=== PATIENT | female | born 1955 | race Two or more races ===

== ENCOUNTER → 2017-04-11 | Outpatient (CLI) | payer OTHER | END | disposition home or self-care (01) | LOC: HKI 14:23 | DX: M87.852 Other osteonecrosis, left femur (principal); M87.851 Other osteonecrosis, right femur | CPT/HCPCS: Z7500 ==

== ENCOUNTER → 2017-07-23 | Outpatient (CLI) | payer OTHER | END | disposition home or self-care (01) | LOC: HKI 13:26 | DX: Z01.818 Encounter for other preprocedural examination (principal) | CPT/HCPCS: Z7500 ==

== ENCOUNTER 2017-07-24 05:44 | Inpatient (IN) | payer OTHER ==
[2017-07-24] MEDS: CEFAZOLIN 2 GM/50 ML (PMX) 50 ML IVPB (07:00)
[2017-07-24] MEDS: TRANEXAMIC ACID 1,000 MG in NS 100 ML PRE-OP X1 IVPB (07:00)
[2017-07-24] MEDS: TRANEXAMIC ACID 1,000 MG in NS 100 ML INTRA-OP X1 IVPB (07:00)
[2017-07-24] MEDS: ONDANSETRON 4 MG INJ IV ×4 (07:21→23:16)
[2017-07-24] MEDS: LANSOPRAZOLE 30 MG CAP PO (07:21)
[2017-07-24] MEDS: CELECOXIB 200 MG CAP PO (07:21)
[2017-07-24] MEDS: oxyCODONE (CR) 10 MG TAB [oxyCONTIN] PO (07:21)
[2017-07-24] MEDS: DEXAMETHASONE 4 MG/ML 1 ML INJ IV (07:21)
[2017-07-24] MEDS: LACTATED RINGER'S 1,000 ML IV* (07:23)
[2017-07-24] MEDS: ACETAMINOPHEN 1000MG/100ML IV 100 ML IVPB (07:33)
[2017-07-24] MEDS: BACITRACIN 50000 UNITS INJ (08:38)
[2017-07-24] MEDS: POLYMYXIN B 500000 UNIT INJ (08:39)
[2017-07-24] MEDS: POLYMYXIN/BACITRACIN 1L IRRIG (08:46)
[2017-07-24] MEDS: HIP PAIN COCKTAIL (CEFUROXIME) INJ (08:47)
[2017-07-24] MEDS ORDERED: morphine (1 MG/ML) 10ML SYRINGE IV ×2 (09:30)
[2017-07-24] MEDS ORDERED: HYDROmorphONE (0.2 MG/ML) 10ML SYG IV ×2 (09:30)
[2017-07-24] MEDS ORDERED: hydrALAzine 20 MG INJ IV (09:30)
[2017-07-24] MEDS ORDERED: METOCLOPRAMIDE 10 MG INJ IV (09:30)
[2017-07-24] MEDS ORDERED: FENTAnyl 50 MCG/ML VIAL IV ×2 (09:30)
[2017-07-24] MEDS ORDERED: ONDANSETRON 4 MG INJ IV (09:30)
[2017-07-24] MEDS ORDERED: MEPERIDINE 25 MG INJ IV (09:30)
[2017-07-24] MEDS ORDERED: DIPHENHYDRAMINE 50 MG INJ IV ×2 (09:30→10:30)
[2017-07-24] MEDS ORDERED: NACL 0.9% 3 ML SYG IV (10:30)
[2017-07-24] MEDS ORDERED: MAGNESIUM HYDROXIDE 30ML CUP PO (10:30)
[2017-07-24] MEDS ORDERED: BISACODYL 10 MG SUPP PR (10:30)
[2017-07-24] MEDS ORDERED: NALOXONE (0.4 MG/ML) INJ IV (10:30)
[2017-07-24] MEDS ORDERED: SENNA/DOCUSATE NA (8.6MG/50MG) TAB PO (10:30)
[2017-07-24] MEDS ORDERED: NA PHOSPHATE/BIPHOS 133 ML ENEMA PR (10:30)
[2017-07-24] MEDS ORDERED: ZOLPIDEM 5 MG TAB PO (10:30)
[2017-07-24] MEDS ORDERED: CEFAZOLIN 1 GM/50 ML (PMX) 50 ML IVPB (10:42)
[2017-07-24] MEDS ORDERED: DOCUSATE SODIUM 100 MG CAP PO (10:42)
[2017-07-24] MEDS ORDERED: ASPIRIN (EC) 325 MG TAB PO (10:42)
[2017-07-24] MEDS: CEFAZOLIN 1 GM/50 ML (PMX) 50 ML IVPB ×2 (10:53→20:16)
[2017-07-24] MEDS: ASPIRIN (EC) 325 MG TAB PO ×2 (10:54→20:16)
[2017-07-24] MEDS: DOCUSATE SODIUM 100 MG CAP PO (10:54)
[2017-07-24] MEDS: SOD CHLORIDE 0.9% 1,000 ML IV ×2 (13:51→22:49)
[2017-07-24] MEDS: oxyCODONE 5 MG TAB PO ×3 (14:00→20:39)
[2017-07-24] MEDS: LACTULOSE 30ML CUP PO (17:57)
[2017-07-24] MEDS ORDERED: DEXTROSE 50% 50 ML SYRINGE IV ×2 (18:00)
[2017-07-24] MEDS ORDERED: GLUCOSE GEL 15 GRAM TUBE PO ×2 (18:00)
[2017-07-24] MEDS ORDERED: IVERMECTIN 3 MG TAB PO (18:00)
[2017-07-24] MEDS ORDERED: GLUCAGON 1 MG INJ IM (18:00)
[2017-07-24] MEDS ORDERED: GLUCOSE GEL 15 GRAM TUBE BUCCAL (18:00)
[2017-07-24] MEDS: INSULIN ASPART [NOVOLOG] 3 ML PEN SC ×2 (18:28→20:24)
[2017-07-24] MEDS: ATORVASTATIN 20 MG TAB PO (20:16)
[2017-07-24] MEDS: GABAPENTIN 100 MG CAP PO (20:16)
[2017-07-24] MEDS: traZODone 50 MG TAB PO (20:40)
[2017-07-25] MEDS: ACCU-CHEK XX (02:07)
[2017-07-25] MEDS: INSULIN ASPART [NOVOLOG] 3 ML PEN SC ×5 (03:06→21:15)
[2017-07-25] MEDS: CEFAZOLIN 1 GM/50 ML (PMX) 50 ML IVPB (03:08)
[2017-07-25 06:07] LABS: ADD MAN DIFF? NO
[2017-07-25] MEDS: ONDANSETRON 4 MG INJ IV (06:18)
[2017-07-25] MEDS: PANTOPRAZOLE (EC) 40 MG TAB PO (06:18)
[2017-07-25] MEDS: LACTULOSE 30ML CUP PO ×4 (06:18→18:37)
[2017-07-25 06:25] LABS: BASOPHILS % 0.1 % (0.0-2.0); HEMATOCRIT 27.7 % (37.0-47.0); HEMOGLOBIN 9.1 g/dl (12.0-16.0); LYMPHOCYTES # 1.2 10^3/ul (0.8-2.9); LYMPHOCYTES % 15.7 % (15.0-51.0); MEAN CORPUSCULAR HEMOGLOBIN 32.2 pg (29.0-33.0); MEAN CORPUSCULAR HGB CONC 32.9 g/dl (32.0-37.0); MEAN CORPUSCULAR VOLUME 97.9 fl (82.0-101.0); MEAN PLATELET VOLUME 11.7 fl (7.4-10.4); MONOCYTE # 0.7 10^3/ul (0.3-0.9); MONOCYTES % 9.3 % (0.0-11.0); NEUTROPHIL # 5.8 10^3/ul (1.6-7.5); NEUTROPHILS % 74.5 % (39.0-77.0); PLATELET COUNT 186 10^3/UL (140-415); RED BLOOD COUNT 2.83 10^6/ul (4.20-5.40); RED CELL DISTRIBUTION WIDTH 12.7 % (11.5-14.5)
[2017-07-25 06:25] LABS: WHITE BLOOD COUNT 7.8 10^3/ul (4.8-10.8)
[2017-07-25 06:43] LABS: ANION GAP 15 (8-16); BLOOD UREA NITROGEN 23 mg/dl (7-20); CALCIUM 8.3 mg/dl (8.4-10.2); CARBON DIOXIDE 27 mmol/L (21-31); CHLORIDE 103 mmol/L (97-110); CREATININE 0.99 mg/dl (0.44-1.00); GLUCOSE 236 mg/dl (70-220); POTASSIUM 4.5 mmol/L (3.5-5.1); SODIUM 140 mmol/L (135-144)
[2017-07-25 06:48] LABS: ALANINE AMINOTRANSFERASE 21 IU/L (13-69); ALBUMIN 3.1 g/dl (3.3-4.9); ALKALINE PHOSPHATASE 54 IU/L (42-121); ASPARTATE AMINO TRANSFERASE 22 IU/L (15-46); MAGNESIUM 1.8 mg/dl (1.7-2.5); TOTAL PROTEIN 5.5 g/dl (6.1-8.1)
[2017-07-25] MEDS: oxyCODONE 5 MG TAB PO ×2 (07:04→13:31)
[2017-07-25] MEDS: metFORMIN 500 MG TAB PO (09:55)
[2017-07-25] MEDS: ASPIRIN (EC) 325 MG TAB PO ×2 (09:55→21:07)
[2017-07-25] MEDS: DOCUSATE SODIUM 100 MG CAP PO ×2 (09:55→21:06)
[2017-07-25] MEDS: FERROUS FUMARATE (SR) TAB PO ×2 (09:55→21:06)
[2017-07-25] MEDS: LOSARTAN 50 MG TAB PO (09:56)
[2017-07-25] MEDS: BETHANECHOL 25 MG TAB PO (09:57)
[2017-07-25] MEDS: CELECOXIB 200 MG CAP PO ×2 (09:57→21:07)
[2017-07-25] MEDS: AMLODIPINE 10 MG TAB PO (09:58)
[2017-07-25] MEDS: GABAPENTIN 100 MG CAP PO ×2 (09:58→21:07)
[2017-07-25] MEDS: SOD CHLORIDE 0.9% 1,000 ML IV ×2 (11:19→23:49)
[2017-07-25] MEDS: INSULIN GLARGINE [LANtus] 3 ML PEN SC (13:34)
[2017-07-25 19:25] LABS: ADD UMIC NO; UR ASCORBIC ACID NEGATIVE (NEGATIVE); UR BILIRUBIN (Dip) NEGATIVE (NEGATIVE); UR BLOOD (Dip) NEGATIVE (NEGATIVE); UR CLARITY CLEAR (CLEAR); UR COLOR YELLOW (YELLOW); UR GLUCOSE (Dip) 3+ mg/dL (NEGATIVE); UR KETONES (Dip) NEGATIVE (NEGATIVE); UR LEUKOCYTE ESTERASE (Dip) NEGATIVE Leu/ul (NEGATIVE); UR NITRITE (Dip) NEGATIVE (NEGATIVE); UR SPECIFIC GRAVITY (Dip) 1.015 (1.003-1.030); UR TOTAL PROTEIN (Dip) NEGATIVE (NEGATIVE); UR UROBILINOGEN (Dip) NEGATIVE (NEGATIVE)
[2017-07-25] MEDS: ATORVASTATIN 20 MG TAB PO (21:05)
[2017-07-25] MEDS: traZODone 50 MG TAB PO (21:06)
[2017-07-26] MEDS: LACTULOSE 30ML CUP PO ×4 (00:48→17:58)
[2017-07-26] MEDS: ACCU-CHEK XX (02:00)
[2017-07-26 05:38] LABS: ADD MAN DIFF? NO
[2017-07-26] MEDS: PANTOPRAZOLE (EC) 40 MG TAB PO (05:43)
[2017-07-26] MEDS: oxyCODONE 5 MG TAB PO ×2 (05:43→11:15)
[2017-07-26 05:49] LABS: WHITE BLOOD COUNT 4.6 10^3/ul (4.8-10.8)
[2017-07-26 05:49] LABS: BASOPHILS % 0.2 % (0.0-2.0); EOSINOPHILS % 0.4 % (0.0-7.0); HEMATOCRIT 26.6 % (37.0-47.0); HEMOGLOBIN 8.6 g/dl (12.0-16.0); LYMPHOCYTES # 1.5 10^3/ul (0.8-2.9); LYMPHOCYTES % 33.1 % (15.0-51.0); MEAN CORPUSCULAR HEMOGLOBIN 32.2 pg (29.0-33.0); MEAN CORPUSCULAR HGB CONC 32.3 g/dl (32.0-37.0); MEAN CORPUSCULAR VOLUME 99.6 fl (82.0-101.0); MEAN PLATELET VOLUME 11.6 fl (7.4-10.4); MONOCYTE # 0.3 10^3/ul (0.3-0.9); MONOCYTES % 7.4 % (0.0-11.0); NEUTROPHIL # 2.7 10^3/ul (1.6-7.5); NEUTROPHILS % 58.5 % (39.0-77.0); PLATELET COUNT 155 10^3/UL (140-415); RED BLOOD COUNT 2.67 10^6/ul (4.20-5.40)
[2017-07-26 06:00] LABS: INR 1.01; PARTIAL THROMBOPLASTIN TIME 32.7 Sec (25.0-35.0); PROTIME 13.4 Sec (11.9-14.9)
[2017-07-26 06:02] LABS: ANION GAP 12 (8-16); BLOOD UREA NITROGEN 22 mg/dl (7-20); CALCIUM 9.2 mg/dl (8.4-10.2); CARBON DIOXIDE 29 mmol/L (21-31); CHLORIDE 103 mmol/L (97-110); CREATININE 1.11 mg/dl (0.44-1.00); GLUCOSE 137 mg/dl (70-220); POTASSIUM 4.9 mmol/L (3.5-5.1); SODIUM 139 mmol/L (135-144)
[2017-07-26] MEDS: CELECOXIB 200 MG CAP PO ×2 (08:58→20:28)
[2017-07-26] MEDS: FERROUS FUMARATE (SR) TAB PO ×2 (08:58→20:28)
[2017-07-26] MEDS: DOCUSATE SODIUM 100 MG CAP PO ×2 (08:58→20:28)
[2017-07-26] MEDS: metFORMIN 500 MG TAB PO (08:58)
[2017-07-26] MEDS: ASPIRIN (EC) 325 MG TAB PO ×2 (08:59→20:28)
[2017-07-26] MEDS: GABAPENTIN 100 MG CAP PO ×2 (08:59→20:28)
[2017-07-26] MEDS: AMLODIPINE 10 MG TAB PO (09:00)
[2017-07-26] MEDS: LOSARTAN 50 MG TAB PO (09:00)
[2017-07-26] MEDS: INSULIN ASPART [NOVOLOG] 3 ML PEN SC ×4 (09:03→20:33)
[2017-07-26] MEDS: INSULIN GLARGINE [LANtus] 3 ML PEN SC (09:09)
[2017-07-26] MEDS: SOD CHLORIDE 0.9% 1,000 ML IV (12:19)
[2017-07-26] MEDS: ATORVASTATIN 20 MG TAB PO (20:28)
[2017-07-26] MEDS: traZODone 50 MG TAB PO (20:29)
[2017-07-27] MEDS: oxyCODONE 5 MG TAB PO ×3 (00:33→19:52)
[2017-07-27] MEDS: LACTULOSE 30ML CUP PO ×4 (00:33→17:56)
[2017-07-27] MEDS: SOD CHLORIDE 0.9% 1,000 ML IV ×2 (00:49→13:19)
[2017-07-27] MEDS: ACCU-CHEK XX (02:00)
[2017-07-27] MEDS: PANTOPRAZOLE (EC) 40 MG TAB PO (05:46)
[2017-07-27 05:47] LABS: ADD MAN DIFF? NO
[2017-07-27 05:54] LABS: BASOPHILS % 0.2 % (0.0-2.0); EOSINOPHILS # 0.1 10^3/ul (0.0-0.5); EOSINOPHILS % 1.2 % (0.0-7.0); HEMATOCRIT 26.6 % (37.0-47.0); HEMOGLOBIN 8.6 g/dl (12.0-16.0); LYMPHOCYTES # 1.8 10^3/ul (0.8-2.9); MEAN CORPUSCULAR HGB CONC 32.3 g/dl (32.0-37.0); MEAN CORPUSCULAR VOLUME 101.9 fl (82.0-101.0); MEAN PLATELET VOLUME 11.8 fl (7.4-10.4); MONOCYTE # 0.4 10^3/ul (0.3-0.9); MONOCYTES % 7.6 % (0.0-11.0); NEUTROPHIL # 3.3 10^3/ul (1.6-7.5); NEUTROPHILS % 58.6 % (39.0-77.0); PLATELET COUNT 162 10^3/UL (140-415); RED BLOOD COUNT 2.61 10^6/ul (4.20-5.40); RED CELL DISTRIBUTION WIDTH 12.6 % (11.5-14.5)
[2017-07-27 05:54] LABS: WHITE BLOOD COUNT 5.7 10^3/ul (4.8-10.8)
[2017-07-27 06:16] LABS: ANION GAP 12 (8-16); BLOOD UREA NITROGEN 23 mg/dl (7-20); CARBON DIOXIDE 30 mmol/L (21-31); CHLORIDE 103 mmol/L (97-110); CREATININE 1.06 mg/dl (0.44-1.00); GLUCOSE 148 mg/dl (70-220); POTASSIUM 5.4 mmol/L (3.5-5.1); SODIUM 140 mmol/L (135-144)
[2017-07-27] MEDS: INSULIN GLARGINE [LANtus] 3 ML PEN SC (09:01)
[2017-07-27] MEDS: FERROUS FUMARATE (SR) TAB PO (09:05)
[2017-07-27] MEDS: INSULIN ASPART [NOVOLOG] 3 ML PEN SC ×3 (09:05→17:55)
[2017-07-27] MEDS: GABAPENTIN 100 MG CAP PO (09:05)
[2017-07-27] MEDS: DOCUSATE SODIUM 100 MG CAP PO (09:05)
[2017-07-27] MEDS: ASPIRIN (EC) 325 MG TAB PO (09:06)
[2017-07-27] MEDS: AMLODIPINE 10 MG TAB PO (09:06)
[2017-07-27] MEDS: metFORMIN 500 MG TAB PO (09:06)
[2017-07-27] MEDS: CELECOXIB 200 MG CAP PO (09:07)
[2017-07-27] MEDS: LOSARTAN 50 MG TAB PO (09:07)
[2017-07-28] MEDS ORDERED: INSULIN GLARGINE [LANtus] 3 ML PEN SC (08:00)
== END 2017-07-27 20:30 | disposition home health service (06) | DRG 470 ==
LOC: REC 05:44 → MS1 13:25
PROVIDERS: Orthopaedic Surgery Adult Reconstructive Orthopaedic Surgery
PROC: 0SRB04A Replacement of Left Hip Joint with Ceramic on Polyethylene Synthetic Substitute, Uncemented, Open Approach (ICD-10-PCS; principal; 2017-07-24 07:30)
DX: M16.12 Unilateral primary osteoarthritis, left hip (principal); E78.5 Hyperlipidemia, unspecified; R21 Rash and other nonspecific skin eruption; F32.9 Major depressive disorder, single episode, unspecified; I10 Essential (primary) hypertension; E11.9 Type 2 diabetes mellitus without complications; Z79.4 Long term (current) use of insulin; Z79.84 Long term (current) use of oral hypoglycemic drugs
CPT/HCPCS: 72170; 73500; 73530; 80048; 80076; 81003; 82962; 83036; 83735; 85025; 85610; 85730; 86850; 86900; 86901; 86920; 87086; 88304; 88311; 97110; 97116; 97162; 97530

== ENCOUNTER → 2017-08-08 | Outpatient (CLI) | payer OTHER | END | disposition home or self-care (01) | LOC: HKI 15:45 | DX: Z47.1 Aftercare following joint replacement surgery (principal); Z96.642 Presence of left artificial hip joint | CPT/HCPCS: 73502 ==

== ENCOUNTER → 2017-09-03 | Outpatient (CLI) | payer OTHER | END | disposition home or self-care (01) | LOC: HKI 14:25 | DX: Z47.1 Aftercare following joint replacement surgery (principal); Z96.642 Presence of left artificial hip joint | CPT/HCPCS: 73502 ==